=== PATIENT | female | born 1995 | race Caucasian/White ===

== ENCOUNTER 2020-09-01 16:31 | Outpatient (CLI) | payer OTHER, SELFPAY ==
--- NOTE | ~2020-09-01 | US_ITS ---
EXAMINATION: US soft tissue chest EXAM DATE: 09/01/2020 17:02 INDICATION: Right flank region palpable abnormality, mass lump. Mass on upper rib cage. TECHNIQUE: Multiple grayscale and Doppler images of the patient's symptomatic right flank region were obtained (by a technologist who performed the scan) and subsequently reviewed. There is no prior st udy for comparison. FINDINGS: Scanning in patients area of clinical concern demonstrates a focal region which is isoechoic to the s ubcutaneous fat, most likely an encapsulated lipoma. This is along the fascial plane of the underlyin g musculature which are probably the intercostal muscles. Region measures 3.1 x 0.7 x 1.7 cm. IMPRESSION: 1. 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 Reviewed, dictated and finalized at location A.
== END 2020-09-01 16:32 | disposition home or self-care (01) ==
PROVIDERS: PCP Internal Medicine; Visit Provider Clinical Nurse Specialist
DX: R22.9 Localized swelling, mass and lump, unspecified (principal)
CPT/HCPCS: 76604